=== PATIENT | female | born 1990 | race Caucasian/White ===

== ENCOUNTER 2020-08-28 12:51 | Outpatient (REF) | payer SELFPAY ==
[2020-08-28 13:48] LABS: Cholesterol 156 mg/dL
[2020-08-28 14:09] LABS: SARS COV2 IgG Negative (Negative)
== END 2020-08-28 12:52 | disposition home or self-care (01) ==
LOC: HO.LNC 12:51
PROVIDERS: Visit Provider Pathology Anatomic Pathology & Clinical Pathology
DX: Z13.89 Encounter for screening for other disorder (principal)
CPT/HCPCS: 36415; 82465; 86769

== ENCOUNTER 2020-08-29 07:50 | Outpatient (REF) | payer OTHER, SELFPAY ==
[2020-08-29 10:08] LABS: MANUAL DIFF FLAG NO
[2020-08-29 10:14] LABS: Basophils Percent Auto 0.3 % (0-2); Eosinophils Absolute Auto 0.1 X10*3/uL (0.0-0.4); Eosinophils Percent Auto 1.3 % (0-4); Hemoglobin 12.3 g/dl (12.0-16.0); Imm Gran Abs Auto 0.02 X10*3/uL (0.00-0.03); Imm Gran Pct Auto 0.3 % (0.0-0.4); Lymphocytes Absolute Auto 2.6 X10*3/uL (1.2-4.9); Lymphocytes Percent Auto 37.2 % (20-40); Mean Corpuscular HGB Conc 33.2 g/dl (31.0-35.0); Mean Corpuscular Hemoglobin 31.2 pg (27.0-33.0); Mean Corpuscular Volume 93.9 fL (80-98); Mean Platelet Volume 9.6 fL (9.4-12.3); Monocytes Absolute Auto 0.4 X10*3/uL (0.1-1.2); Monocytes Percent Auto 5.6 % (2-11); Neutrophils Absolute Auto 3.9 X10*3/uL (2.0-8.3); Neutrophils Percent Auto 55.3 % (45-73); Platelet Count 390 X10*3/uL (160-400); Red Blood Count 3.94 X10*6/uL (4.20-5.50); Red Cell Distribution Width 10.9 % (11.0-16.0)
[2020-08-29 10:59] LABS: Alanine Aminotransferase 15 U/L (0-31); Anion Gap 12 (12-20); Aspartate Amino Transferase 22 U/L (5-31); Blood Urea Nitrogen 11 mg/dL (9-16); Calcium 8.8 mg/dL (8.4-10.2); Carbon Dioxide 23 mmol/L (22-29); Chloride 107 mmol/L (96-108); Cholesterol 143 mg/dL; Estimated Glomerular Filt Rate > 60; Glucose Fasting 92 mg/dL (60-99); HDL Cholesterol 62 mg/dL; LDL Cholesterol Calculated 64 mg/dl; Potassium 4.4 mmol/l (3.3-5.1); Sodium 138 mmol/L (135-145); Triglycerides 89 mg/dL
[2020-08-29 11:03] LABS: TSH reflex Free T4 1.11 mIU/mL (0.32-4.0); Vitamin D 25-OH Total 11.2 ng/mL (>30)
== END 2020-08-29 07:51 | disposition home or self-care (01) ==
LOC: HO.10HDL 07:50
PROVIDERS: Visit Provider Internal Medicine
DX: I10 Essential (primary) hypertension (principal); Z82.49 Family history of ischemic heart disease and other diseases of the circulatory system; Z83.3 Family history of diabetes mellitus; Z83.49 Family history of other endocrine, nutritional and metabolic diseases
CPT/HCPCS: 36415; 80048; 80061; 82306; 84443; 84450; 84460; 85025

== ENCOUNTER 2020-11-28 07:59 | Outpatient (REF) | payer OTHER, SELFPAY ==
[2020-11-28 08:17] LABS: COVID-19 Test Negative (Negative)
== END 2020-11-28 08:00 | disposition home or self-care (01) ==
LOC: HO.EMPCOV 07:59
PROVIDERS: Visit Provider Internal Medicine
DX: Z20.822 Contact with and (suspected) exposure to COVID-19 (principal)
CPT/HCPCS: 36415; 87635; C9803

== ENCOUNTER 2020-12-02 12:45 | Outpatient (REF) | payer OTHER, SELFPAY ==
[2020-12-02 13:11] LABS: COVID-19 Test Negative (Negative)
== END 2020-12-02 12:46 | disposition home or self-care (01) ==
LOC: HO.EMPCOV 12:45
PROVIDERS: Visit Provider Internal Medicine
DX: Z20.822 Contact with and (suspected) exposure to COVID-19 (principal)
CPT/HCPCS: 36415; 87635; C9803

== ENCOUNTER 2021-11-03 13:01 | Outpatient (REF) | payer OTHER, SELFPAY ==
--- NOTE | ~2021-11-03 | XR_ITS ---
EXAMINATION: XR BILATERAL HIPS WITH AP PELVIS CLINICAL INFORMATION: Hip pain COMPARISON: None TECHNIQUE: AP view of the pelvis and 2 views of each hip were obtained. FINDINGS: AP pelvis: There is normal symmetry of bilateral hip joints and SI joints. No visible acute fracture, dislocation or subluxation seen. SI joints are symmetrical. No gross bony abnormality seen. Right hip: There is no visible acute fracture, dislocation or subluxation seen. There is no bony erosive changes. The soft tissues are normal. Left hip: There is no visible acute fracture or dislocation. No bony erosive changes. No loose bodies. The soft tissues are normal. XR/XR hip BI w PEL1V IMPRESSION: Normal pelvis and hips.
--- NOTE | ~2021-11-03 | US_ITS ---
EXAMINATION: US PELVIS CLINICAL INFORMATION: Right lower quadrant pain COMPARISON: None TECHNIQUE: Ultrasound of the pelvis is performed using both transabdominal and transvaginal transducers along with Doppler. Transvaginal imaging is performed due to inadequate visualization transabdominally. Doppler color and grayscale evaluation of the ovarian vessels was performed including waveform spectral analysis. FINDINGS: The uterus is anteverted and measures 8 x 3 x 4 cm in dimension. No focal uterine lesion is seen. Endometrial thickness is normal measuring 0.1 cm. The ovaries are normal-appearing. The right ovary measures 1.8 x 1.2 x 2.2 cm. The left ovary measures 2.2 x 0.9 x 1.7 cm. Doppler and color flow is documented to both ovaries. There is no evidence of torsion. US/US pelvic ovarian doppler IMPRESSION: Normal pelvic ultrasound. No evidence of torsion.
--- NOTE | ~2021-11-03 | US_ITS ---
EXAMINATION: US PELVIS CLINICAL INFORMATION: Right lower quadrant pain COMPARISON: None TECHNIQUE: Ultrasound of the pelvis is performed using both transabdominal and transvaginal transducers along with Doppler. Transvaginal imaging is performed due to inadequate visualization transabdominally. Doppler color and grayscale evaluation of the ovarian vessels was performed including waveform spectral analysis. FINDINGS: The uterus is anteverted and measures 8 x 3 x 4 cm in dimension. No focal uterine lesion is seen. Endometrial thickness is normal measuring 0.1 cm. The ovaries are normal-appearing. The right ovary measures 1.8 x 1.2 x 2.2 cm. The left ovary measures 2.2 x 0.9 x 1.7 cm. Doppler and color flow is documented to both ovaries. There is no evidence of torsion. US/US pelvic and transvaginal IMPRESSION: Normal pelvic ultrasound. No evidence of torsion.
== END 2021-11-03 13:02 | disposition home or self-care (01) ==
LOC: HO.HMGCX 13:01
PROVIDERS: Visit Provider Internal Medicine
DX: R10.31 Right lower quadrant pain (principal); M25.551 Pain in right hip
CPT/HCPCS: 73521; 76830; 76856; 93975

== ENCOUNTER → 2021-11-20 08:32 | Outpatient (BNVA) | payer OTHER, SELFPAY | PROVIDERS: PCP Internal Medicine; Visit Provider Physician Assistant | DX: Z13.89 Encounter for screening for other disorder (principal) ==

== ENCOUNTER 2021-11-26 08:21 | Outpatient (REF) | payer OTHER, SELFPAY ==
--- NOTE | ~2021-11-26 | XR_ITS ---
EXAMINATION: XR knee LT 2V, XR knee standing BI, XR knee RT 2V CLINICAL INFORMATION: Reason for Exam M25.569 - Pain in unspecified knee COMPARISON: None. TECHNIQUE: [place], lateral and Standing AP views of the bilateral knees FINDINGS: No acute fracture or dislocation. Joint spaces and articular surfaces are maintained. Articular surfaces are smooth. No joint effusion. No erosive changes. Soft tissues unremarkable. No joint effusions. XR/XR knee RT 2V IMPRESSION: Normal radiographic appearance of the bilateral knees
--- NOTE | ~2021-11-26 | XR_ITS ---
EXAMINATION: XR knee LT 2V, XR knee standing BI, XR knee RT 2V CLINICAL INFORMATION: Reason for Exam M25.569 - Pain in unspecified knee COMPARISON: None. TECHNIQUE: [place], lateral and Standing AP views of the bilateral knees FINDINGS: No acute fracture or dislocation. Joint spaces and articular surfaces are maintained. Articular surfaces are smooth. No joint effusion. No erosive changes. Soft tissues unremarkable. No joint effusions. XR/XR knee standing BI IMPRESSION: Normal radiographic appearance of the bilateral knees
--- NOTE | ~2021-11-26 | XR_ITS ---
EXAMINATION: XR knee LT 2V, XR knee standing BI, XR knee RT 2V CLINICAL INFORMATION: Reason for Exam M25.569 - Pain in unspecified knee COMPARISON: None. TECHNIQUE: [place], lateral and Standing AP views of the bilateral knees FINDINGS: No acute fracture or dislocation. Joint spaces and articular surfaces are maintained. Articular surfaces are smooth. No joint effusion. No erosive changes. Soft tissues unremarkable. No joint effusions. XR/XR knee LT 2V IMPRESSION: Normal radiographic appearance of the bilateral knees
== END 2021-11-26 08:22 | disposition home or self-care (01) ==
LOC: HO.HOSX 08:21
PROVIDERS: Visit Provider Physician Assistant
DX: M25.561 Pain in right knee (principal); M25.562 Pain in left knee; M25.462 Effusion, left knee; M25.461 Effusion, right knee
CPT/HCPCS: 73560; 73565

== ENCOUNTER 2021-11-26 11:17 | Outpatient (REF) | payer OTHER, SELFPAY ==
[2021-11-27 13:16] LABS: PTT (LAC) Screen 25 sec (< OR = 40)
[2021-11-30 18:57] LABS: Anti Nuclear Antibody Screen POSITIVE (NEGATIVE); Anti Nuclear Antibody Titer 1:40 titer
[2021-11-30 21:23] LABS: Anti DNA DS Antibody 5 IU/mL
== END 2021-11-26 11:18 | disposition home or self-care (01) ==
LOC: HO.LAB 11:17
PROVIDERS: PCP Internal Medicine; Visit Provider Urology
DX: M70.61 Trochanteric bursitis, right hip (principal)
CPT/HCPCS: 36415; 85597; 85613; 85730; 86038; 86039; 86225

== ENCOUNTER 2021-12-11 07:50 | Outpatient (REF) | payer OTHER, SELFPAY ==
[2021-12-11 10:49] LABS: Alanine Aminotransferase 18 U/L (0-31); Anion Gap 14 (12-20); Aspartate Amino Transferase 20 U/L (5-31); Blood Urea Nitrogen 16 mg/dL (9-16); Calcium 9.4 mg/dL (8.4-10.2); Carbon Dioxide 23 mmol/L (22-29); Chloride 107 mmol/L (96-108); Cholesterol 196 mg/dL; Estimated Glomerular Filt Rate > 60; Glucose Fasting 100 mg/dL (60-99); HDL Cholesterol 71 mg/dL; LDL Cholesterol Calculated 117 mg/dl; Potassium 4.6 mmol/L (3.3-5.1); Rheumatoid Factor < 15.0 IU/mL (<15.0); Sodium 139 mmol/L (135-145); Triglycerides 41 mg/dL
[2021-12-11 11:12] LABS: TSH reflex Free T4 0.85 uIU/mL (0.32-4.0)
[2021-12-14 18:21] LABS: CRP High Sensitivity 1.7 mg/L
[2021-12-14 18:41] LABS: Lyme Abs Screen <0.90 index
== END 2021-12-11 07:51 | disposition home or self-care (01) ==
LOC: HO.LAB 07:50
PROVIDERS: PCP Internal Medicine; Visit Provider Internal Medicine
DX: Z00.01 Encounter for general adult medical examination with abnormal findings (principal); F41.8 Other specified anxiety disorders; M13.80 Other specified arthritis, unspecified site; R76.8 Other specified abnormal immunological findings in serum; Z83.49 Family history of other endocrine, nutritional and metabolic diseases
CPT/HCPCS: 36415; 80048; 80061; 84443; 84450; 84460; 86141; 86431; 86617; 86618

== ENCOUNTER 2021-12-16 07:51 | Outpatient (REF) | payer OTHER, SELFPAY ==
[2021-12-16 08:56] LABS: MANUAL DIFF FLAG NO
[2021-12-16 09:27] LABS: Basophils Percent Auto 0.5 % (0-2); Eosinophils Absolute Auto 0.1 X10*3/uL (0.0-0.4); Eosinophils Percent Auto 1.2 % (0-4); Hematocrit 42.6 % (37.0-47.0); Hemoglobin 14.1 g/dl (12.0-16.0); Imm Gran Abs Auto 0.04 X10*3/uL (0.00-0.03); Imm Gran Pct Auto 0.5 % (0.0-0.4); Lymphocytes Absolute Auto 2.8 X10*3/uL (1.2-4.9); Lymphocytes Percent Auto 37.3 % (20-40); Mean Corpuscular HGB Conc 33.1 g/dl (31.0-35.0); Mean Corpuscular Hemoglobin 29.7 pg (27.0-33.0); Mean Corpuscular Volume 89.7 fL (80.0-98.0); Mean Platelet Volume 9.6 fL (9.4-12.3); Monocytes Absolute Auto 0.4 X10*3/uL (0.1-1.2); Monocytes Percent Auto 4.6 % (2-11); Neutrophils Absolute Auto 4.2 x10*3/uL (2.0-8.3); Neutrophils Percent Auto 55.9 % (45-73); Platelet Count 401 X10*3/uL (160-400); Red Blood Count 4.75 X10*6/uL (4.20-5.50); Red Cell Distribution Width 12.2 % (11.0-16.0); White Blood Count 7.6 X10*3/uL (4.8-10.8)
[2021-12-16 10:01] LABS: C Reactive Protein 0.18 mg/dL (< or = 0.50)
[2021-12-16 10:04] LABS: Creatinine Urine 153.23 mg/dL; Microalbum/Creatinine Ratio Ur 5.8 ug/mg cr
[2021-12-16 10:26] LABS: Erythrocyte Sedimentation Rate 2 MM/HR (0-20)
[2021-12-19 08:02] LABS: Antibody to SS-A Antigen <1.0 NEG AI (<1.0 NEG); Antibody to SS-B Antigen <1.0 NEG AI (<1.0 NEG); SM/Ribonucleoprotein Ab <1.0 NEG AI (<1.0 NEG); Smith Protein <1.0 NEG AI (<1.0 NEG)
== END 2021-12-16 07:52 | disposition home or self-care (01) ==
LOC: HO.LAB 07:51
PROVIDERS: PCP Internal Medicine; Visit Provider Internal Medicine Rheumatology
DX: R76.8 Other specified abnormal immunological findings in serum (principal); M13.80 Other specified arthritis, unspecified site; M70.61 Trochanteric bursitis, right hip; I73.00 Raynaud's syndrome without gangrene; Z83.49 Family history of other endocrine, nutritional and metabolic diseases
CPT/HCPCS: 36415; 82043; 85025; 85652; 86140; 86235

== ENCOUNTER 2022-05-17 09:54 | Outpatient (REF) | payer OTHER, SELFPAY ==
--- NOTE | ~2022-05-17 | US_ITS ---
EXAMINATION: US ABDOMEN COMPLETE and appendix ultrasound CLINICAL INFORMATION: Right lower quadrant pain. COMPARISON: None TECHNIQUE: Real-time imaging of the abdominal viscera. FINDINGS: PANCREAS: Normal. ABDOMINAL AORTA: The proximal, mid, and distal segments are normal in caliber. INFERIOR VENA CAVA: Visualized portions are normal. LIVER: Normal. The liver is normal in size. The liver contour is normal. Parenchymal echogenicity is normal. No focal hepatic lesion. There is no intrahepatic biliary duct dilatation seen. GALLBLADDER: Normal. The gallbladder is physiologically distended without evidence of stones, sludge, polyps, wall thickening or pericholecystic fluid. COMMON BILE DUCT: Normal in caliber measuring 0.2 cm in diameter. RIGHT KIDNEY: Normal. No hydronephrosis. No renal calculi or focal parenchymal lesions. The kidney measures 10.3 cm in maximum dimension. LEFT KIDNEY: Normal. No hydronephrosis. No renal calculi or focal parenchymal lesions. The kidney measures 9.8 cm in maximum dimension. SPLEEN: Normal. The spleen measures 8.2 cm in maximum dimension. There is a small splenule. FREE FLUID: None. The appendix is identified in the right lower quadrant and appears normal appearing. This measures 0.4 cm in diameter. This is compressible. This demonstrates no hyperemia, wall thickening or periappendiceal fluid. There is a right lower quadrant lymph node that is normal in size measuring 1 x 0.3 x 0.6 cm. US/US abdomen complete IMPRESSION: Normal abdominal ultrasound. Normal-appearing appendix
== END 2022-05-17 09:55 | disposition home or self-care (01) ==
LOC: HO.US 09:54
PROVIDERS: PCP Internal Medicine; Visit Provider Internal Medicine
DX: R10.31 Right lower quadrant pain (principal)
CPT/HCPCS: 76700

== ENCOUNTER → 2022-09-02 15:36 | Outpatient (BNVA) | payer OTHER, SELFPAY | PROVIDERS: PCP Internal Medicine | DX: Z13.89 Encounter for screening for other disorder (principal) | CPT/HCPCS: 36415; 84450; 84460; 86706; 86803; 87389; 99202 ==

== ENCOUNTER 2022-10-21 12:11 | Outpatient (REF) | payer OTHER, SELFPAY ==
[2022-10-21 12:31] LABS: MANUAL DIFF FLAG NO
[2022-10-21 13:27] LABS: Basophils Percent Auto 0.4 % (0-2); Eosinophils Percent Auto 0.2 % (0-4); Hematocrit 43.1 % (37.0-47.0); Hemoglobin 14.6 g/dl (12.0-16.0); Imm Gran Abs Auto 0.03 X10*3/uL (0.00-0.03); Imm Gran Pct Auto 0.4 % (0.0-0.4); Lymphocytes Absolute Auto 2.4 X10*3/uL (1.2-4.9); Lymphocytes Percent Auto 28.5 % (20-40); Mean Corpuscular HGB Conc 33.9 g/dl (31.0-35.0); Mean Corpuscular Hemoglobin 31.1 pg (27.0-33.0); Mean Corpuscular Volume 91.7 fL (80.0-98.0); Mean Platelet Volume 9.7 fL (9.4-12.3); Monocytes Absolute Auto 0.4 X10*3/uL (0.1-1.2); Monocytes Percent Auto 4.3 % (2-11); Neutrophils Absolute Auto 5.6 x10*3/uL (2.0-8.3); Neutrophils Percent Auto 66.2 % (45-73); Platelet Count 432 X10*3/uL (160-400); Red Cell Distribution Width 11.5 % (11.0-16.0); White Blood Count 8.4 X10*3/uL (4.8-10.8)
[2022-10-21 13:59] LABS: Anion Gap 14 (12-20); Blood Urea Nitrogen 11 mg/dL (9-16); C Reactive Protein 0.17 mg/dL (< or = 0.50); Carbon Dioxide 23 mmol/L (22-29); Chloride 105 mmol/L (96-108); Estimated Glomerular Filt Rate > 60; Glucose Random 100 mg/dL (60-115); Sodium 138 mmol/L (135-145)
[2022-10-21 14:03] LABS: Erythrocyte Sedimentation Rate 2 MM/HR (0-20)
[2022-10-21 14:30] LABS: Total Protein Urine Random < 7 mg/dL (<12)
[2022-10-25 11:14] LABS: Complement C3 97 mg/dL (83-193)
[2022-10-25 13:54] LABS: Anti DNA DS Antibody 3 IU/mL
== END 2022-10-21 12:12 | disposition home or self-care (01) ==
LOC: HO.LAB 12:11
PROVIDERS: PCP Internal Medicine; Visit Provider Internal Medicine Rheumatology
DX: R76.8 Other specified abnormal immunological findings in serum (principal); I73.00 Raynaud's syndrome without gangrene; M25.561 Pain in right knee; M25.562 Pain in left knee
CPT/HCPCS: 36415; 80048; 84156; 85025; 85652; 86140; 86160; 86225

== ENCOUNTER → 2022-10-25 10:30 | Outpatient (BNVA) | payer OTHER, SELFPAY | PROVIDERS: PCP Internal Medicine; Visit Provider Internal Medicine Rheumatology | DX: Z13.89 Encounter for screening for other disorder (principal) ==

== ENCOUNTER 2022-12-27 07:38 | Outpatient (REF) | payer OTHER, SELFPAY ==
[2022-12-27 11:33] LABS: Alanine Aminotransferase 24 U/L (0-31); Anion Gap 13 (12-20); Aspartate Amino Transferase 16 U/L (5-31); Blood Urea Nitrogen 15 mg/dL (9-16); Calcium 9.1 mg/dL (8.4-10.2); Carbon Dioxide 22 mmol/L (22-29); Chloride 110 mmol/L (96-108); Cholesterol 168 mg/dL; Estimated Glomerular Filt Rate > 60; Glucose Fasting 98 mg/dL (60-99); HDL Cholesterol 65 mg/dL; LDL Cholesterol Calculated 96 mg/dl; Potassium 4.3 mmol/L (3.3-5.1); Sodium 141 mmol/L (135-145); Triglycerides 35 mg/dL
[2022-12-27 11:51] LABS: Vitamin D 25-OH Total 45.1 ng/mL (>30)
== END 2022-12-27 07:39 | disposition home or self-care (01) ==
LOC: HO.10HDL 07:38
PROVIDERS: Visit Provider Internal Medicine
DX: Z00.01 Encounter for general adult medical examination with abnormal findings (principal); R10.31 Right lower quadrant pain; E55.9 Vitamin D deficiency, unspecified; F32.A Depression, unspecified; F41.9 Anxiety disorder, unspecified; M25.50 Pain in unspecified joint; Z82.49 Family history of ischemic heart disease and other diseases of the circulatory system
CPT/HCPCS: 36415; 80048; 80061; 82306; 84450; 84460

== ENCOUNTER 2022-12-30 09:17 | Outpatient (REF) | payer OTHER, SELFPAY ==
--- NOTE | ~2022-12-30 | CT_ITS ---
EXAMINATION: CT ABDOMEN AND PELVIS WITH CONTRAST CLINICAL INFORMATION: Right lower quadrant pain COMPARISON: None available. TECHNIQUE: Multidetector volumetric images were obtained from the superior aspect of the liver through the pubic symphysis following administration 85 mL of Omnipaque 350 intravenous contrast. Sagittal and coronal reformatted images were obtained on the technologist's workstation. Oral contrast: No This CT examination was performed using dose optimization techniques as appropriate, variously including the following: *Automated exposure control *Adjustment of mA and/or kV according to patient size (this includes techniques or standardized protocols for targeted exams where dose is matched to indication/reason for exam; i.e. extremities or head) *Use of iterative reconstruction technique DLP: 236 mGy-cm FINDINGS: LUNG BASES: The visualized lung bases are unremarkable. LIVER, GALLBLADDER, AND BILIARY TREE: The liver is normal in size, shape, and attenuation. No focal hepatic lesion or biliary ductal dilatation is present. The gallbladder is unremarkable with no evidence of radiopaque gallstones, gallbladder wall thickening, or obvious pericholecystic inflammatory changes. PANCREAS: Unremarkable. SPLEEN: Unremarkable. ADRENAL GLANDS: Unremarkable. KIDNEYS AND URETERS: The kidneys are normal size, shape and attenuation. There is normal bilateral cortical nephrogram with normal cortical thickness. No radiopaque renal calculi or hydronephrosis seen. BLADDER: Unremarkable. GASTROINTESTINAL TRACT: There is scattered stool, oral contrast seen throughout the colon without distention. The small bowel loops are normal caliber. Appendix is normal caliber. No inflammatory changes seen in right lower quadrant. ABDOMINAL WALL: No significant hernia is appreciated. LYMPH NODES: Normal. VASCULAR: Unremarkable. PELVIC VISCERA: The uterus is anteverted and appears unremarkable. There is no free air or free fluid. OSSEOUS STRUCTURES: No aggressive lytic or sclerotic process seen. CT/CT abdomen pelvis w IV con IMPRESSION: 1. No acute intra-abdominal process seen. 2. Mild constipation. Normal appendix. Fleischner guidelines were followed.
[2022-12-30] MEDS: iohexoL 350 MG/ML 100 ML INFUS..BTL IV (12:04)
== END 2022-12-30 09:18 | disposition home or self-care (01) ==
LOC: HO.CT 09:17
PROVIDERS: PCP Internal Medicine; Visit Provider Internal Medicine
DX: R10.31 Right lower quadrant pain (principal)
CPT/HCPCS: 74177; Q9967

== ENCOUNTER 2023-05-12 07:57 | Outpatient (REF) | payer OTHER, SELFPAY ==
[2023-05-14 06:39] LABS: Thyroid Peroxidase Antibodies <1 IU/mL (<9)
[2023-05-17 07:23] LABS: Hexagonal Phase Neutralization Negative (Negative); PTT (LAC) Screen 44 sec (<=40)
[2023-05-18 10:33] LABS: Cardiolipin IgG Ab <2.0 GPL-U/mL; Cardiolipin IgM Ab <2.0 MPL-U/mL
== END 2023-05-12 07:58 | disposition home or self-care (01) ==
LOC: HO.LAB 07:57
PROVIDERS: PCP Internal Medicine; Visit Provider Obstetrics & Gynecology
DX: N96 Recurrent pregnancy loss (principal)
CPT/HCPCS: 36415; 84443; 85597; 85598; 85613; 85730; 86147; 86376

== ENCOUNTER 2025-02-11 09:21 | Outpatient (REF) | payer OTHER, SELFPAY ==
[2025-02-11 10:50] LABS: Hematocrit 40.6 % (37.0-47.0); Hemoglobin 13.7 g/dl (12.0-16.0)
[2025-02-11 13:17] LABS: Cholesterol 198 mg/dL (<200); HDL Cholesterol 53 mg/dL (>40); Triglycerides 115 mg/dL (<150)
== END 2025-02-11 09:22 | disposition home or self-care (01) ==
LOC: HO.LAB 09:21
PROVIDERS: PCP Internal Medicine; Visit Provider Internal Medicine
DX: F41.9 Anxiety disorder, unspecified (principal); F32.A Depression, unspecified; I73.00 Raynaud's syndrome without gangrene; E78.5 Hyperlipidemia, unspecified; Z13.1 Encounter for screening for diabetes mellitus
CPT/HCPCS: 36415; 80061; 82947; 85014; 85018

== ENCOUNTER 2025-02-14 14:13 | Outpatient (AMB) | payer OTHER, SELFPAY ==
--- NOTE | 2025-02-14 14:18 | A.OFFPC_ITS ---
Vital Signs 02/14/25 14:20 Height 4 ft 11 in Weight 125 lb BMI 25.2 BP 108/80 Blood Pressure Location Rt brachial Position Sitting Respiration 16 Pulse 70 Pulse Source Pulse Oximeter Temp 98.0 F Temp Source Oral Pulse Oximetry (%) 99 Oxygen Delivery Method Room Air Intake Visit Reasons: Annual PE Intake Note: Pt is here today for her PE: ast papsmear 04/2024 Is last menstrual period known: Yes Last menstrual period: 01/24/25 Allergies blackberry Allergy (Intermediate, Verified 02/14/25 14:49) Hives raspberry Allergy (Mild, Verified 02/14/25 14:50) Hives amoxicillin (AMOXICILLIN) Allergy (Unknown, Verified 02/14/25 14:48) HIVES, rash berries Allergy (Unknown, Uncoded 02/14/25 14:48) rash and hives Medication List - Last Reconciled 02/18/25 by Gayle Barrios MD calcium carbonate 600 mg PO DAILY cholecalciferol (vitamin D3) 25 mcg PO DAILY levonorgestrel (Kyleena) intrauterine omega 8-xrz-hoe-fish oil 1,000 (120-180) mg (Fish Oil) 1 cap PO DAILY Tobacco use date assessed: 02/14/25 Dental Screening Dental Screen Date: 02/14/25 Did you have a dental visit in the last 12 months?: Yes Did you have a dental problem in the last 6 months where you did not have access to dental care?: No Was dental information given to patient?: Patient has dentist HPI Annual PE HPI Details 34-year-old lady here today for her phys ical exam. [facility] Medical History (Updated 02/18/25 @ 01:16 by Gayle Barrios MD) Uses intrauterine device as primary control method Nephrolithiasis Raynaud phenomenon Polyarthralgia Vitamin D deficiency Migratory polyarthritis Positive DONATO (antinuclear antibody) Acute right hip pain Anxiety and depression Family history of thyroid disease Family history of early CAD Surgical History (Updated 02/18/25 @ 01:16 by Gayle Barrios MD) History of section Family History Father Hx of myocardial infarction, Onset Age: 36 Hyperlipidemia Mother Diabetes Hyperlipidemia Hx of thyroid disease Brother Mental health disorder Social History Housing: House Alcohol intake: current Patient Tobacco Use Status: Never used Tobacco e-Cigarette/Vaping Use: Never Used service: No Current occupational status: employed Cognitive needs: No Hearing needs: No Vision needs: No Female Reproductive History Menstrual Date of last menstrual period: 01/24/25 Questionnaire PHQ-9 Over the last 2 weeks, how often have you been bothered by any of the following problems? 1. Little interest or pleasure in doing things: not at all 2. Feeling down, depressed, or hopeless: not at all 3. Trouble falling or staying asleep, or sleeping too much: not at all 4. Feeling tired or having little energy: not at all 5. Poor appetite or overeating: not at all 6. Feeling bad about yourself - or that you are a failure or have let yourself or your family down: not at all 7. Trouble concentrating on things, such as reading the newspaper or watching television: not at all 8. Moving or speaking so slowly that other people could have noticed. Or the opposite - being so fidgety or restless that you have been moving around a lot more than usual: not at all 9. Thoughts that you would be better off or of hurting yourself in some way: not at all Total score: 0 Depression Screening Interpretation: Negative Depression Screening Done: Yes 46531 - PHQ-9 Billing: Yes Source: Developed by Drs. Bud Swain, Winnie Jerry, Joshua Anthony and colleagues, with an educational cami from [employer]. Thrive Questionnaire Date Thrive assessed: 02/14/25 I am a: Patient What is your living situation today?: I have a steady place to live Within the past 12 months, did the food you bought not last and you didn't have the money to get more?: Never true Within the past 12 months, did you worry whether your food would run out before you got money to buy more?: Never true Do you have trouble paying for medicines?: No Do you have trouble getting transportation to medical appointments?: No Do you have trouble paying your heating and electricity bill?: No Do you have trouble taking care of your child, family member or friend?: No Do you have trouble with day-to-day activities such as bathing, preparing meals, shopping, managing finances, etc.?: No Are you currently unemployed and looking for a job?: No Are you interested in more education?: No Please select the resources that you would like help with: None Currently or been in a relationship where the following occur: No concerns reported THRIVE Score: 0 AUDIT C Alcohol Use Questionnaire (AUDIT-C) 1. How often do you have a drink containing alcohol?: Monthly or less 2. How many drinks containing alcohol do you have on a typical day when you are drinking?: 1 or 2 3. How often do you have six or more drinks on one occasion?: Never Total Score: 1 SHANELLE-7 AMB Questionnaire SHANELLE-7 Date SHANELLE - 7 assessed: 02/14/25 Feeling nervous, anxious, or on edge: 1 = Several days Not being able to stop or control worryin = Not at all Worrying too much about different things: 0 = Not at all Trouble relaxin = Several days Being so restless that it is hard to sit still: 0 = Not at all Becoming easily annoyed or irritable: 0 = Not at all Feeling afraid as if something awful might happen: 0 = Not at all Total SHANELLE-7 score (0-4 normal; 5-9 mild; 10-14 moderate; 15-21 severe): 2 Source: Developed by Drs. Bud Swain, Winnie Jerry, Joshua Anthony and colleagues, with an educational cami from [employer]. SHANELLE-7 Assessment Billing SHANELLE-7 Assessment Tool: SHANELLE-7 Assessment 62219 Review of Systems Const Denies fatigue, Denies fever(s), Denies lethargy, Denies malaise, Denies poor appetite and Denies weakness Eyes Denies change in vision ENT Reports no additional complaints Card Denies chest pain, Denies syncope, Denies irregular heart rhythm, Denies lightheadedness and Denies dyspnea Resp Denies chest congestion and Denies dyspnea GI Denies melena, Denies bloating, Denies change in bowel habits, Denies heartburn and Denies nausea Details: Negative for dysuria, hematuria, nocturia, decreased force/flow and genital discharge Musc Denies abnormal gait Skin/Breast Details: Negative for itching, rash, hives Neuro Denies abnormal gait, Denies burning sensations, Denies syncope, Denies lack of coordination, Denies focal weakness, Denies radicular pain, Denies seizure-like activity and Denies weakness Psych Denies depression Endo Details: Negative for polyuria and polydypsia Denies fatigue Dain/Lymph Denies easy bruising Aller/Immun Reports no additional complaints Physical exam (Primary Care) Vital Signs: Last Vital Signs Temp 98.0 F 02/14/25 14:20 Pulse 70 02/14/25 14:20 Resp 16 02/14/25 14:20 BP 108/80 02/14/25 14:20 Pulse Ox 99 02/14/25 14:20 Oxygen Delivery Method Room Air 02/14/25 14:20 BMI result Body Mass Index 25.2 Tobacco/Smoking Status: Tobacco use Status Tobacco use date assessed 02/14/25 02/14/25 14:26 Patient Tobacco Use Status Never used Tobacco 02/14/25 14:26 e-Cigarette/Vaping Use Never Used 02/14/25 14:26 PHQ-9: PHQ-9 Score PHQ-9: Total score 0 02/14/25 15:05 Depression Screening Interpretation: Negative Thrive Assessment: Date of Thrive Assessment Date Thrive assessed 02/14/25 02/14/25 14:26 Currently or been in a relationship where the following occur: No concerns reported Advance Care Planning discussion: Completed/Scanned Date of discussion: 02/14/25 Who was present: Patient Forms completed: Health Care Proxy Time spent: 16-45 minutes Actual minutes spent: 3 Const Other: Alert oriented x3, no acute cardiorespiratory distress noted ambulatory normal gait Orientation/consciousness: patient oriented x3 HENMT Ears: hearing grossly normal bilaterally, TM's normal bilaterally and EAC's normal General nose exam: Normal external nose present Face and sinus: Yes face symmetric Mouth: oropharynx normal and moist mucous membranes Eyes General: appearance normal, both eyes and all related structures Neck Neck: Yes full ROM, Yes no lymphadenopathy and Yes supple Thyroid: Thyroid normal Chest Breast/axilla palpation: normal palpation of the breasts and normal palpation of the axillae Resp Auscultation: clear to auscultation bilaterally Cardio Other: S1 and S2 present regular rate and rhythm GI Palpation (GI): Soft to palpation, Tenderness to palpation present (GI) in the RLQ, no guarding and no masses Auscultation: normal bowel sounds General: Yes no CVA tenderness Back/Spine/Pelvis Back: no CVA tenderness and No back tenderness Skin General skin exam: no rashes or lesions noted Neuro General: patient oriented x3, gait normal, tone normal, Normal light touch and pain sensation, no focal motor deficits and CN's II-XI intact bilaterally Extrem General: Yes full ROM, Yes no joint enlargement and Yes no pedal edema Psych Appearance: grossly normal and well kempt Mental Status: mental status grossly normal Speech and movement: Normal speech and movement present Affect: normal affect Attitude: cooperative Results Reviewed Results Reviewed: Name: Mojgan Talley Age/Sex: 34/F : 1990 Unit#: [id number] Attend Dr: Gayle Barrios MD Re02/11/25 Status: DEP REF Location: .LAB Disch: SPEC : [id number] ROS: 02/11/25 STATUS: COMP REQ : [id number] RECD: 02/11/[address]: Gayle Barrios MD COMP: 02/11/25 ENTERED: 02/11/[address]: ORDERED: Glu Fasting, Lipid Panel Test Result Flag Reference FBS 93 60-99 mg/dL Triglyceride 115 <150 mg/dL Desirable Triglyceride: less than 150 mg/dL Borderline High Triglyceride 150-199 mg/dL High Triglyceride: 200-499 mg/dL Very High Triglyceride: greater than or equal to 5OO mg/dL Cholesterol 198 <200 mg/dL Desirable Cholesterol: less than 200 mg/dL Borderline High Cholesterol: 200-239 mg/dL High Cholesterol: greater than 239 mg/dL LDL Calculated 122 H <100 mg/dL Desirable LDL: less than 100 mg/dL Near Optimal/Above Optimal LDL: 110-129 mg/dL Borderline High LDL: 130-159 mg/dL High LDL: 160-189 mg/dL Very High LDL: greater than or equal to 190 mg/dL HDL 53 >40 mg/dL Desirable HDL: greater than 40 mg/dL Note: This HDL assay may give artificially low results in patients with liver disease. Laboratory Tests 02/11/25 09:57 Hgb 13.7 Hct 40.6 Coding Level of Care Code Est Pt Prev Care 18-39y(82149) Diagnoses Annual visit for general adult medical examination with abnormal findings Z00.01 Uses intrauterine device as primary control method Z97.5 Advanced directives, counseling/discussion Z71.89 Additional Codes PHQ-9 - 00503 - PHQ-9 Billing: Yes ([id number]) SHANELLE-7 Assessment Billing - SHANELLE-7 Assessment Tool: SHANELLE-7 Assessment 20068 ([id number]) Vital Signs *Quality* - Advance Care Planning discussion: Completed/Scanned ([id number]) Vital Signs *Quality* - Time spent: 16-45 minutes ([id number]) Assessment & Plan Assessment & Plan (1) Annual visit for general adult medical examination with abnormal findings: Code(s): Z00.01 - Encounter for general adult medical examination with abnormal findings Plan: Latest fasting lab results reviewed with patient. Recommended dental visit every 6 months and regular eye exams, at least every 2 years. Take adequate calcium in diet and vitamin-D 3 at 2000 IU per cap once a day, in addition to weight-bearing exercises to help maintain good muscle tone and weight control. Instructed to do self-breast exam, and recommended to get yearly mammogram, starting at age 40. Has her own OBGYN would as her routine Pap and pelvic exam. Up-to-date with Her vaccines (2) Uses intrauterine device as primary control method: Code(s): Z97.5 - Presence of (intrauterine) contraceptive device Category: Social Hx Plan: Followed by OBGYN (3) Advanced directives, counseling/discussion: Code(s): Z71.89 - Other specified counseling Plan: Initiated the conversation about Advanced Directives. Advanced Directives help patients prepare for current and future decisions about their medical treatment and place of care. Discussed with patient that it is a process where a patients current condition and prognosis are reviewed, their wishes for information regarding their illness are elicited, and likely medical dilemmas are presented and options discussed. Healthcare proxy form completed today. The form can be amended as needed, reviewed yearly and make changes as needed Orders: Orders Alanine Aminotransferase 1 Year Z13.1 - Encounter for screening for diabetes mellitus, Z13.220 - Encounter for screening for lipoid disorders, Z83.49 - Family history of other endocrine, nutritional and metabolic diseases, Z97.5 - Presence of (intrauterine) contraceptive device Vitamin D 25-OH Total 1 Year Z13.1 - Encounter for screening for diabetes mellitus, Z13.220 - Encounter for screening for lipoid disorders, Z83.49 - Family history of other endocrine, nutritional and metabolic diseases, Z97.5 - Presence of (intrauterine) contraceptive device TSH reflex Free T4 1 Year Z13.1 - Encounter for screening for diabetes mellitus, Z13.220 - Encounter for screening for lipoid disorders, Z83.49 - Family history of other endocrine, nutritional and metabolic diseases, Z97.5 - Presence of (intrauterine) contraceptive device Lipid Panel 1 Year Z13.1 - Encounter for screening for diabetes mellitus, Z13.220 - Encounter for screening for lipoid disorders, Z83.49 - Family history of other endocrine, nutritional and metabolic diseases, Z97.5 - Presence of ( intrauterine) contraceptive device Aspartate Amino Transferase 1 Year Z13.1 - Encounter for screening for diabetes mellitus, Z13.220 - Encounter for screening for lipoid disorders, Z83.49 - Family history of other endocrine, nutritional and metabolic diseases, Z97.5 - Presence of (intrauterine) contraceptive device Basic Metabolic Panel Fasting 1 Year Z13.1 - Encounter for screening for diabetes mellitus, Z13.220 - Encounter for screening for lipoid disorders, Z83.49 - Family history of other endocrine, nutritional and metabolic diseases, Z97.5 - Presence of (intrauterine) contraceptive device
[2025-02-14 14:20] VITALS: BP 108/80; PULSE 70; RESP 16; TEMP 36.7; O2SAT 99; BMI 25.2
== END 2025-02-14 15:19 | disposition home or self-care (01) ==
LOC: HO.HMCC 14:13
PROVIDERS: PCP Internal Medicine; Visit Provider Internal Medicine
DX: Z00.01 Encounter for general adult medical examination with abnormal findings (principal); Z97.5 Presence of (intrauterine) contraceptive device; Z71.89 Other specified counseling; Z00.00 Encounter for general adult medical examination without abnormal findings

== ENCOUNTER → 2025-02-14 14:13 | Outpatient (BNVA) | payer OTHER, SELFPAY | PROVIDERS: PCP Internal Medicine; Visit Provider Internal Medicine | DX: Z00.01 Encounter for general adult medical examination with abnormal findings (principal); Z97.5 Presence of (intrauterine) contraceptive device; Z71.89 Other specified counseling | CPT/HCPCS: 96127 ==

== ENCOUNTER 2025-05-24 07:21 | Outpatient (AMB) | payer OTHER, SELFPAY ==
--- OUTSIDE RECORDS SUMMARY | 2025-05-24 07:23 | XMS_ITS | Clinical Summary ---
Author Organization [facility] Address [address] [place] [id number] Phone Care Team Providers Care Strainer Tender Name Role Phone Gayle Barrios MD Primary Care Provider Allergies Active Allergy Reactions Criticality Noted Date Comments Berries Hives,Itching,Rash Low 01/31/2023 Penicillins Hives,Tinnitus Medium 01/31/2023 Medications vitamins-DHA (DUET DHA ) 29 mg iron-1 mg -430 mg Cmpk Take 1 packet by mouth daily. Active omega 4-ekh-xqe-fish oil 850-1,400 mg Cap 1,000 mg. Active cholecalciferol (VITAMIN D3) 5,000 unit tablet Active calcium carbonate (CALCIUM 600) 1,500 mg (600 mg elemental) tablet Active Hospital, Clinic, or Other Facility Administered Medication Ordered Dose Route Frequency Start Date End Date Status levonorgestreL (KYLEENA) 17.5 mcg/24 hr (5 yrs) 19.5 mg intrauterine device 1 each 1 each Utrn Every 5 years 04/19/2024 Active Active Problems Problem Noted Date Diagnosed Date Anxiety 06/22/2023 Overview (06/22/2023): No med's, no therapist. Currently feels stable. DONATO positive 06/22/2023 Overview (12/14/2023): Pt has had +DONATO and h/o joint swelling. Seeing rheumatology at [place], who tells her she does not mett criteria for lupus, but just watching. She will get records. Plan for L2 sono. Normal Assessment & Plan (08/18/2023 4:15 PM EST): Pt denies any pain, swelling. Feeling very stable. Assessment & Plan (07/19/2023 4:49 PM EST): Pt has had +DONATO and h/o joint swelling. Seeing rheumatology at [place], who tells her she does not mett criteria for lupus, but just watching. She will get records. Plan for L2 sono. Resolved Problems Problem Noted Date Diagnosed Date Resolved Date Normal intrauterine , antepartum 02/01/2024 04/06/2024 Significant discrepancy betw een uterine size and clinical dates, antepartum, third trimester 11/11/2023 04/06/2024 Overview (12/14/2023): Measures 34 at 28 wks Growth us ordered 12/14/23 38% Assessment & Plan (12/14/2023 10:41 AM EDT): EFW 38% by ultrasound today. BPP 03/15. Relieved that everything is normal. Encounter for supervision of normal in third trimester 06/22/2023 04/06/2024 Overview (02/08/2024): plans immediate PP Kyleena IUD--Ok with Mirena (on formulary) CNM OB-CMI score: 0 [06/22/2023] Group PN care? No screening cfDNA negative, carrier screening negative Baby ASA? NI Rh Pos GC/Chlam Neg/neg PAP 02/2021 (at [place], results in media) Flu 05/2023 COVID-19 vaccinated x4, booster 06/2023 Hgb 11.6 GTT 121 Repeat RPR NR Tdap 12/05/23 EPDS 8 PPBC plans immediate PP Kyleena IUD - NOT PLACED GBS neg Feeding Plan Breast Assessment & Plan (02/01/2024 8:26 PM EDT): Mojgan is a 33yo at 40w3d who presents to routine OB visit. Feeling very uncomfortable and ready to be done. Denies ctx, vb, lof, or dfm. Requests cervical exam and membrane sweep if possible. Cervix posterior and closed. Planning immediate Kyleena. Answered labor and questions. Discussion on ways to promote labor. Plan BPP and CNM for early next week. Postdates IOL scheduled for next Tuesday night, 02/07/24. Began discussion of aspects of labor induction and answered questions. Reviewed T3 warning signs and when to call. Assessment & Plan (01/28/2024 11:08 AM EDT): Here with her partner. Feeling uncomfortable, but notes some improvement since she left work a few weeks ago. No clear pre-labor signs yet. Feels comfortable with labor signs and when to call. Reviewed that ALICIA is an estimate and it is common and normal to pass ALICIA. Discussed risks of postdates vs benefits of spontaneous labor onset. Briefly reviewed IOL procedure and rationale for IOL between 41 and 42 weeks. Plan made to schedule BPP for late next week and formulate a plan for IOL if no labor yet. Attempted a membrane sweep after counseling today but cervix is LTC. Assessment & Plan (01/18/2024 5:00 PM EDT): Mojgan is a 33 y.o. at 38w3d doing well. Denies VB/LOF/Ctxs. + FM. Feeling more uncomfortable, increase in swelling - comfort measures reviewed like elevation, massage, Ice bath for feet. Discussed PPBC- interested in immediate PP Kyleena- reviewed R/B and consent signed. Assessment & Plan (01/11/2024 4:57 PM EDT): Mojgan is doing great! She stopped work this week and has been feeling much better resting at home. Less swelling in her feet and less ashley mcarthur. Baby is moving well. Reviewed GBS negative. She feels comfortable with labor warnings and when to call. Assessment & Plan (01/04/2024 5:08 PM EDT): Mojgan is a 33 y.o. at 36w3d doing well. Here with her partner. Denies VB/LOF/Ctxs. + FM. 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 Reviewed s/s of labor and when to call and expectations for movement. Assessment & Plan (12/29/2023 4:37 PM EDT): Here with [place]. She is doing ok, starting to feel very uncomfortable at work - foot swelling, carpal tunnel, musculoskeletal pain. 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 She is hoping to begin her medical leave at 37 weeks - reviewed that she can request an amendment to PMFL via web portal. PP BCM discussed, she plans hormonal IUD. Discussed GBS at tx. Assessment & Plan (12/14/2023 10:43 AM EDT): Mojgan is here with her partner. She is doing ok. Baby is moving well. She is tired. Not sleeping well due to discomfort. Swollen feet, carpal tunnel, back pain. Comfort measures reviewed. Discussed tylenol PM or unisom as needed for sleep. She will try that. Assessment & Plan (12/05/2023 1:24 PM EDT): Mojgan is a 33 y.o. at 31w2d states she feels well today. Denies any concerns at this time. Denies any LOF/Vaginal bleeding/Ucs. -Discussed FM at this [facility] and [facility] -Review signs and symptoms of Labor and when/how to contact midwives -GBS at 36wks -Reviewed end of discomforts and comfort measures. -We discussed PP BC. At this time pt IS UNDECIDED Assessment & Plan (11/11/2023 4:17 PM EDT): Mojgan is feeling well. Baby is active. Denies vb, lof, ctxs We discussed upcoming Tdap. Reviewed normal 3T labs Gathering preps--and excited to meet baby girl DINO 2 wks. Assessment & Plan (10/21/2023 12:02 PM EDT): Mojgan is feeling very well. No complaints. Baby girl is very active. Denies s/sx of PTL We discussed upcoming 3T labs which were ordered Pt had questions about positions for sleep--all answered DINO 3 wks Assessment & Plan (09/21/2023 11:38 AM EST): Mojgan is here with Amilcar. Feeling well. Baby has been very active. Had normal level 2 anatomy scan. Question about weight gain. Healthy diet and weight gain in reviewed. Offered group care. They will think about it. No other questions or concerns. Assessment & Plan (08/18/2023 4:17 PM EST): Mojgan is here with her partner Amilcar, feeling very well. Looking forward to L2 FAS. C/o mild tingling in her hands, mostly at night. Feels supported with wrist braces. We discussed causes in and discussed comforts: yoga, stretches, massage DINO 4 wks. Assessment & Plan (07/19/2023 4:51 PM EST): Mojgan is here w Jax to hear heartbeat--they are thrilled! Her fatigue has lifted. She is taking PNV w DHA. 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 Reviewed comfort measures. Reviewed steps to take toward optimal health in . Reviewed s/s PTL, danger signs, when/how to call. History of miscarriage, currently 06/22/2023 04/06/2024 Overview (06/22/2023): SAB in January and March, both at or before 6wks. Early OB US/OB physical. Ectopic/SAB precautions reviewed with patient at OB intake. Pt elects for genetic carrier screening and cfDNA. Ordered with intake labs. Immunizations Immunization Administration Dates Next Due Tdap 12/05/2023 Family History Medical History Relation Comments Anxiety disorder Brother Depression Brother Hypertension Brother Heart attack Father Hyperlipidemia Father Diabetes Maternal Grandfather Dementia Maternal Grandmother Diabetes Maternal Grandmother Diabetes Mother Hyperlipidemia Mother Thyroid disease Mother Dementia Paternal Grandfather Diabetes Paternal Grandfather Heart attack Paternal Grandfather Heart disease Paternal Grandfather Dementia Paternal Grandmother Diabetes Paternal Grandmother Heart disease Paternal Grandmother Stroke Paternal Grandmother Relation Status Comments Brother Alive Father Alive Maternal Grandfather Alive Maternal Grandmother Mother Alive Paternal Grandfather Paternal Grandmother Alive Social History Tobacco Use Types Packs/Day Years Used Date Smoking Tobacco: Never Smokeless Tobacco: Never Tobacco Cessation:Counseling Given: Not Answered Alcohol Use Standard Drinks/Week Comments Not Currently 0 (1 standard drink = 0.6 oz pur e alcohol) Education Answer Date Recorded Are you interested in more education? Not on karma e 01/10/2023 Are you concerned about learning? Not on file 01/10/2023 No 01/10/2023 No 01/10/2023 Digital Access Answer Date Recorded No 01/10/2023 No 01/10/2023 Reliable internet access at home? Not on file 01/10/2023 Device with a working camera? Not on file Intimate Partner Violence Answer Date R ecorded Are you denied basic needs s uch as food, clothing, or medical care? No 02/03/2024 In the past 12 months have y ou been in a relationship with a person who hurts, threatens, or tries to control you? No 02/03/2024 Are you denied basic needs s uch as food, clothing, or medical care? No 02/03/2024 In the past 12 months have y ou been in a relationship with a person who hurts, threatens, or tries to control you? No 02/03/2024 Comments No Sex and Gender Information Value Date Recorded Sex Assigned at Female 01/13/2023 2:33 PM EDT Legal Sex Female 8:19 AM EDT Gender Identity Female 01/13/2023 2:33 PM EDT Sexual Orientation Straight 01/13/2023 2: 33 PM EDT Last Filed Vital Signs Vital Sign Reading Time Taken Comments Blood Pressure 106/70 04/19/2024 4:55 PM EDT Pulse 82 02/08/2024 10:45 AM EDT Temperature 36.6 C (97.9 F) 02/08/2024 10:45 AM EDT Respiratory Rate 16 02/08/2024 10:45 AM EDT Oxygen Saturation 100% 02/08/2024 10:45 AM EDT Inhaled Oxygen Concentration - - Weight 62.1 kg (137 lb) 04/19/2024 4:55 PM EDT Height 149.9 cm (4' 11 ) 03/09/2024 11:22 AM EDT Body Mass Index 27.67 03/09/2024 11:22 AM EDT Plan of Treatment Health Maintenance Due Date Last Done Comments DEPRESSION SCREENING 2004 INFLUENZA VACCINE (#1) 2025 COVID-19 VACCINE (1 - 2024-2 6 season) 2025 PAP SMEAR 04/06/2029 04/06/2024, 02/25/2021 IUD 04/19/2029 04/19/2024 Adult Td,Tdap Booster 12/04/2033 12/05/2023 HEPATITIS C SCREENING Completed 07/09/2023 HIV ONE-TIME SCREENING (18-6 5 YEARS) Completed 07/09/2023 SMOKING STATUS SCREENING (On ce After 26 Yrs) Completed 04/19/2024 HEPATITIS A VACCINES Aged Out No long er eligible based on patient's age to complete this topic HIB VACCINES Aged Out No longer eligi ble based on patient's age to complete this topic MENINGOCOCCAL VACCINES (ACWY) Aged Out No longer eligible based on patient's age to complete this topic MENINGOCOCCAL VACCINES (B) Aged Out N o longer eligible based on patient's age to complete this topic PNEUMOCOCCAL VACCINES (0-49 years) Aged Out No longer eligible b ased on patient's age to complete this topic Medical Devices Implanted Type Area Crystallizer Operator Device Identifier Shelf Expiration Date Model / Serial / Lot Iud Implanted: (Quantity not on file) Intrauterine Device Procedures Procedure Name Priority Date/Time Associated Diagnosis Comments PAP TEST Routine 04/06/2024 12:00 AM EDT HEPATITIS C ANTIBODY, QUALITATIVE Routine 07/09/2023 10:33 AM EST Encounter for supervision of normal in first trimester Need for hepatitis C screening test from Last 3 Months or Most Recently Relevant to Health Maintenance Results * Pap Test (04/06/2024 12:00 AM EDT) Report [address] [address] Charger Operator: Pratibha Pickens MD LANG PATH THERAPIST Cytology Report FINAL DIAGNOSIS A. PAP SMEAR (THIN PREP) CE: SPECIMEN ADEQUACY: Satisfactory for evaluation; transformation zone present. Limited by blood INTERPRETATION: NEGATIVE FOR INTRAEPITHELIAL LESION OR MALIGNANCY. Due to blood, the specimen was reprocessed with 10% Glacial Acetic Acid. This specimen was analyzed by the automated ThinPrep Imaging System ([employer] and manually rescreened by a manager manufacturing and/or pathologist. Electronically Signed Out By: AVEL Muniz(ASCP) AVEL Mason(ASCP) The Pap test is a screening test primarily for squamous cancers and precursors and has associated false-negative and false-positive results. New technologies such as liquid-based preparations may decrease but will not eliminate all false-negative results. Regular sampling and follow-up of unexplained clinical signs and symptoms are recommended to minimize false negative results. PROCEDURES/ADDENDA HPV Testing (Requested) Ordered Date: 04/11/2024 A. PAP SMEAR (THIN PREP) CE: Human Papilloma Virus Test NEGATIVE for high-risk Human Papilloma Virus types 16, 18, 45 and the Other high risk probe set (Includes 31, 33, 35, 39, 51, 52, 56, 58, 59, 66, 68) Note: Testing performed by [employer] HR-HPV analysis. Clinical correlation is advised. This HPV test was performed at [facility], [address] [place] [address]. This test has been FDA approved for both SurePath and ThinPrep cervical cytology specimens. The accuracy and precision of this test for all other specimen sources has been verified in the Cytopathology Laboratory of the [facility] and has not been cleared or approved by the U.S. Food and Drug Administration. Clinical correlation is advised. CLINICAL HISTORY Date of Last Menstrual Period: 04-24-2023 Menstrual History: Other Clinical Conditions: Screening Pap SPECIMEN SOURCE A: PAP SMEAR (THIN PREP) CE Patient Name: MOJGAN AU : 1990 (Age: 33) Sex: F Institution: [facility] Location: [facility] Date of Collection: 04/06/2024 Date of Reported: 04/18/2024 17:01 Results to: Malena Bailon CNM [facility] Final Diagnosis A. PAP SMEAR (THIN PREP) CE: SPECIMEN ADEQUACY: Satisfactory for evaluation; transformation zone present. Limited by blood INTERPRETATION: NEGATIVE FOR INTRAEPITHELIAL LESION OR MALIGNANCY. Due to blood, the specimen was reprocessed with 10% Glacial Acetic Acid. This specimen was analyzed by the automated ThinPrep Imaging System ([employer] and manually rescreened by a manager manufacturing and/or pathologist. [facility] Results\Inte rpretation A. PAP SMEAR (THIN PREP) CE: Human Papilloma Virus TestNEGATIVE for high-risk Human Papilloma Virus types 16, 18, 45 and the Other high risk probe set (Includes 31, 33, 35, 39, 51, 52, 56, 58, 59, 66, 68)Note: Testing performed by [employer] HR-HPV analysis. Clinical correlation is advised. This HPV test was performed at [facility], [address] [place] [address]. This test has been FDA approved for both SurePath and ThinPrep cervical cytology specimens. The accuracy and precision of this test for all other specimen sources has been verified in the Cytopathology Laboratory of the [facility] and has not been cleared or approved by the U.S. Food and Drug Administration. Clinical correlation is advised. [facility] Conversion Type 04/06/2024 9:51 AM EDT Malena RAMIREZ CYTOLOGY ORDERABLES Edited Resu lt - Final [address] [address] * Hepatitis C antibody, qualitative (07/09/2023 10:33 AM EST) HCV NON-REACTIV E NON-REACTI VE [facility] Blood 07/09/2023 10:3 3 AM EST 07/09/2023 10:51 AM EST Velma RAMIREZ LAB BLOOD ORDERABLES Fin al Result [facility] [address], [place] [id number] from Last 3 Months or Most Recently Relevant to Health Maintenance Insurance Incomparable Things BENEFITS ADMINISTRATORS Incomparable Things [employer]EF[employer] [place] [address] Incomparable Things [employer]ENEFITS ADMINISTRATORS Incomparable Things BENEFITS ADMINISTRATORS Incomparable Things BENEFITS ADMINISTRAT[employer] Incomparable Things [employer]EFITS [employer]MINISTRAT[employer] Advance Directives For more information, please contact: [phone] (9AM - 5PM [facility], Tuesday-Tuesday) Documents on File Type Date Recorded 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 Healthcare 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 02/10/2024 4:08 PM * Full Code (Latest Code Status on File) Date Activated Date Inactivated Comments 02/04/2024 1:23 AM Question Answer Comments Code Status Confirmed With: Patient * Full Code Date Activated Date Inactivated Comments 02/03/2024 2:24 AM 02/04/2024 1:20 AM Question Answer Comments Code Status Confirmed With: Patient Care Teams Strainer Tender Relationship Specialty Start Date End Date Gayle Barrios MD [facility] [place] [address] PCP - General Internal Medicine 01/13/23 Additional Source Comments The information contained in this document represents components of the legal health record. It is not the complete legal health record.[facility]
--- OUTSIDE RECORDS SUMMARY | 2025-05-24 07:23 | XMS_ITS ---
[facility] Name [facility] Unknown History of Medication Use Medication Directions Dispensed Refills Start Date End Date Stat us clotrimazole 05/19/2025 active Allergies Allergen Reaction Severity Comment Documented Date Source Statu s PENICILLINS CT_PUC Encounters Encounter Type Encounter Reason Primary Diagnosis Location Date Ambulatory TBE Tinea corporis [facility] 05/19/2025 Care Team Organization Name Specialty Phone Email Start Date End Da te [facility] 05/23/2025 [facility] 05/19/2025
--- OUTSIDE RECORDS SUMMARY | 2025-05-24 07:23 | XMS_ITS | Encounter Summary ---
Author Organization [facility] Address [address] [place] [id number] Phone Care Team Providers Care Electronic Maintenance Supervisor Name Role Phone Gayle Barrios MD Primary Care Provider Encounter Details Date Type Department Care Team (Late st Contact Info) Description 02/04/2024 Procedure Pass [facility] L[facility]D Procedures [address] [place] [address] Social History Tobacco Use Types Packs/Day Years Used Date Smoking Tobacco: Never Smokeless Tobacco: Never Alcohol Use Standard Drinks/Week Comments Not Currently [...] Orientation Straight 01/13/2023 2: 33 PM EDT documented as of this encounter Plan of Treatment Not on file documented as of this encounter Visit Diagnoses Not on filedocumented in this encounter Care Teams Electronic Maintenance Supervisor Relationship Specialty Start Date End Date Gayle Barrios MD [address] [facility] [place] [address] PCP - General Internal Medicine 01/13/23 documented as of this encounter Additional Source Comments The information contained in this document represents components of the legal health record. It is not the complete legal health record.[facility]
--- NOTE | 2025-05-24 07:47 | AM.OFFWIN_ITS ---
Intake Vital Signs 05/24/25 07:48 Height 4 ft 11 in Weight 126 lb BMI 25.4 BP 100/78 Blood Pressure Location Rt brachial Position Sitting Respiration 16 Pulse 71 Pulse Source Pulse Oximeter Temp 98.3 F Temp Source Oral Pulse Oximetry (%) 98 Oxygen Delivery Method Room Air Intake Visit Reasons: EP-fungal infection under arms Intake Note: Pt is here today has a fungal infection under both armpits dx'd last week no improvement with topical crm Patient Tobacco Use Status: Never used Tobacco Allergies blackberry Allergy (Intermediate, Verified 05/24/25 07:48) Hives raspberry Allergy (Mild, Verified 05/24/25 07:48) Hives amoxicillin (AMOXICILLIN) Allergy (Unknown, Verified 05/24/25 07:48) HIVES, rash berries Allergy (Unknown, Uncoded 05/24/25 07:48) rash and hives Medication List - Last Reconciled 05/24/25 by Jany Bernardo MD calcium carbonate 600 mg PO DAILY cholecalciferol (vitamin D3) 25 mcg PO DAILY clotrimazole 1% appl topical BID levonorgestrel (Kyleena) intrauterine omega 0-ruw-oty-fish oil 1,000 (120-180) mg (Fish Oil) 1 cap PO DAILY HPI EP-fungal infection under arms HPI Details History of Present Illness The patient is a 34-year-old female presenting with a rash under the arms. Rash under arms (Contact Dermatitis): - The patient reports the issue as irrit ation in the armpits, initially thought to be a fungal infection. When she visited the different walk-in clinic and was given a script for clotrimazole cream which is not helping - The onset of symptoms occurred last . - Patient mentioned using a razor for sh aving, suggesting a possible inciting event. - Describes skin sensitivity; attributes irritation potentially to razor use or deodorant application post-shave with regular soap. - Reports experiencing extreme itching a nd discomfort. - Confirms prior use of hydrocortisone f or symptomatic relief. - Patient denies other treatments or add itional products on affected area. Problem List - Contact Dermatitis - Severe Pruritus Plan - Discontinue use of clotrimazole as it is ineffective for the condition. - Prescribe a stronger topical steroid c ream to manage inflammation and irritation. Clobetasol b.i.d. - Advise oral medication prednisone 20 m g once a day with food to alleviate itching, to be taken for three days. - Recommend cessation of shaving and usi ng deodorant until inflammation subsides. 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: Alert awake oriented x3 motor intact Skin: Demarcated rash both under arms with erythema where she applied the deodorant [facility] Medical History Uses intrauterine device as primary control method Nephrolithiasis Raynaud phenomenon Polyarthralgia Vitamin D deficiency Migratory polyarthritis Positive DONATO (antinuclear antibody) Acute right hip pain Anxiety and depression Family history of thyroid disease Family history of early CAD Surgical History History of section Family History Father Hx of myocardial infarction, Onset Age: 36 Hyperlipidemia Mother Diabetes Hyperlipidemia Hx of thyroid disease Brother Mental health disorder Social History Housing: House Alcohol intake: current Patient Tobacco Use Status: Never used Tobacco e-Cigarette/Vaping Use: Never Used service: No Current occupational status: employed Cognitive needs: No Hearing needs: No Vision needs: No Physical Exam Vital Signs: Last Vital Signs Temp 98.3 F 05/24/25 07:48 Pulse 71 05/24/25 07:48 Resp 16 05/24/25 07:48 BP 100/78 05/24/25 07:48 Pulse Ox 98 05/24/25 07:48 Oxygen Delivery Method Room Air 05/24/25 07:48 BMI result Body Mass Index 25.4 Assessment & Plan Assessment & Plan (1) Contact dermatitis: Code(s): L25.9 - Unspecified contact dermatitis, unspecified cause Qualifiers: Contact dermatitis type: irritant Contact dermatitis trigger: cosmetics Qualified Code(s): L24.3 - Irritant contact dermatitis due to cosmetics Plan Problem List - Contact Dermatitis - Severe Pruritus Plan - Discontinue use of clotrimazole as it is ineffective for the condition. - Prescribe a stronger topical steroid cream to manage inflammation and irritation. Clobetasol b.i.d. - Advise oral medication prednisone 20 mg once a day with food to alleviate itching, to be taken for three days. - Recommend cessation of shaving and using deodorant until inflammation subsides. Medications: New betamethasone dipropionate 0.05% 1 appl topical BEDTIME 45 grams 1RF 30 days prednisone 20 mg PO DAILY 5 tabs 0RF 5 days Coding Level of Care Code Est Pt Level 3 (78000) Diagnoses Irritant contact dermatitis due to cosmetics L24.3 Contact dermatitis type: irritant Contact dermatitis trigger: cosmetics
[2025-05-24 07:48] VITALS: BP 100/78; PULSE 71; RESP 16; TEMP 36.8; O2SAT 98; BMI 25.4
== END 2025-05-24 08:09 | disposition home or self-care (01) ==
PROVIDERS: PCP Internal Medicine; Visit Provider Internal Medicine
DX: L24.3 Irritant contact dermatitis due to cosmetics (principal)